=== PATIENT | female | born 2005 | race Hispanic/Latino ===

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

== ENCOUNTER 2024-03-19 12:36 | Emergency (ER) | payer OTHER, SELFPAY ==
[2024-03-19 12:59] LABS: Absolute Eosinophils 0.3 K/uL (0-0.5); Absolute Lymphocytes (CBC) 2.4 K/uL (0.7-4.9); Absolute Monocytes 0.5 K/uL (0.1-1.3); Absolute Neutrophil 6.6 K/uL (1.8-8.0); Basophils % 0.5 % (0-1.3); Eosinophils % 3.4 % (0-4.4); Hematocrit 34.8 % (36.0-45.0); Hemoglobin 11.5 g/dL (12.0-15.0); Lymphocytes % 24.6 % (15.3-44.8); MCH 28.3 pg (27.0-35.0); MCHC 33.1 g/dL (32.0-36.0); MCV 85.5 fL (80-100); MPV 7.6 fL (7.6-11.3); Monocytes % 5.1 % (3.3-12.3); Neutrophils % 66.4 % (41.7-73.7); Platelets 510 thou/uL (152-406); RBC Red Blood Cell Count 4.07 M/uL (3.86-4.86); Red Cell Distribution Width 13.6 % (12.1-15.2)
[2024-03-19] MEDS ORDERED: NA CHLORIDE 0.9% 100 ML ONE (13:00)
[2024-03-19] MEDS ORDERED: LEVETIRACETAM 500 MG/5 ML VIAL IV ONE (13:00)
[2024-03-19 13:16] LABS: Anion Gap 9.3 mEq/L (5.0-15.0); Potassium 3.3 mEq/L (3.5-5.1)
--- NOTE | 2024-03-19 15:28 | EDPHYS ---
Physician Documentation [facility] Name: Delmi Angel Age: 18 yrs Sex: Female : 2005 Arrival Date: 03/19/2024 Time: 12:36 Bed 13 Private MD: ED Physician Shan Lomeli HPI: 03/19 13:06 This 18 yrs old Female presents to ER via EMS with complaints of Seizure. rn 13:06 The patient presents after having a single isolated seizure. rn 13:09 Character of seizure(s): Loss of consciousness: it is not known if the patient rn experienced loss of consciousness, Motor activity: generalized, Apnea: the patient did not experience apnea, Circulation: the patient did not experience evidence of pulse disturbance. Seizure onset: just prior to arrival. Seizure Hx: Usual frequency: roughly every 2 month(s). EMS care: none. Current symptoms: Generalized muscle aches. The patient has experienced similar episodes in the past. Patient reports had seizure prior to arrival while at work. Has a history of seizure. Has not filled her Keppra in the last 2 months. Usually has seizure every 2 months. No fever or chills. No head injury. Feels the same as she always does after seizures.. Historical: - Allergies: 12:49 peanut; jl7 - PMHx: 12:49 Seizure; breast cancer; jl7 - PSHx: 12:49 cyst; strabismus; jl7 - Immunization history:: Adult Immunizations unknown. - Infectious Disease History:: Denies. - Social history:: Smoking status: Reported history of juuling and/or vaping. - Family history:: not pertinent. - Hospitalizations: : No recent hospitalization is reported. ROS: 13:10 Constitutional: Negative for fever, chills, and weight loss, Cardiovascular: Negative rn for chest pain, palpitations, and edema, Respiratory: Negative for shortness of breath, cough, wheezing, and pleuritic chest pain, Abdomen/GI: Negative for abdominal pain, nausea, vomiting, diarrhea, and constipation, MS/Extremity: Negative for injury and deformity, Skin: Negative for injury, rash, and discoloration, Neuro: Positive for seizure Exam: 13:10 Constitutional: This is a well developed, well nourished patient who is awake, alert, rn and in no acute distress. Head/Face: Normocephalic, atraumatic. Eyes: Pupils equal round and reactive to light, extra-ocular motions intact. Cardiovascular: Regular rate and rhythm. No pulse deficits. Respiratory: No increased work of breathing, no retractions or nasal flaring. Neuro: Awake and alert, GCS 15, oriented to person, place, time, and situation. Cranial nerves II-XII grossly intact. Motor strength 5/5 in all extremities. Sensory grossly intact. Cerebellar exam normal. 13:17 ECG was reviewed by the Attending Physician. rn Vital Signs: 12:47 BP 114 / 68; Pulse 76; Resp 17; Temp 98.2; Pulse Ox 98% ; Weight 93.89 kg; Height 5 ft. jl7 4 in. ; Pain 3/10; 14:11 BP 124 / 74; Pulse 68; Resp 16; Pulse Ox 100% on R/A; mb9 15:37 BP 120 / 68; Pulse 88; Resp 18; Pulse Ox 100% on NC; mb9 12:47 Body Mass Index 35.53 (93.89 kg, 162.56 cm) jl7 12:47 Pain Scale: Adult jl7 [place] Coma Score: 12:49 Eye Response: spontaneous(4). Motor Response: obeys commands(6). Verbal Response: jl7 oriented(5). Total: 15. MDM: 12:37 Medical Screening Exam initiated rn 15:27 Differential diagnosis: seizure. Data reviewed: vital signs, nurses notes, lab test rn result(s), and as a result, I will discharge patient. Counseling: I had a detailed discussion with the patient and/or guardian regarding the historical points, exam findings, and any diagnostic results supporting the discharge/admit diagnosis, lab results, the need for outpatient follow up, to return to the emergency department if symptoms worsen or persist or if there are any questions or concerns that arise at home. Special discussion: I discussed with the patient/guardian in detail that at this point there is no indication for admission to the hospital. It is understood, however, that if the symptoms persist or worsen the patient needs to return immediately for re-evaluation. Based on the history and exam findings, there is no indication for further emergent testing or inpatient evaluation. I discussed with the patient/guardian the need to see the neurologist for further evaluation of the symptoms. 03/19 12:38 Order name: CBC with Diff; Complete Time: 15: rn 03/19 12:38 Order name: Basic Metabolic Panel; Complete Time: 15: rn 03/19 12:38 Order name: IV Start; Complete Time: 12:45 rn EC:17 Rate is 80 beats/min. Rhythm is regular. QRS [place] is Normal. MS interval is normal. QRS rn interval is normal. QT interval is normal. No Q waves. T waves are Normal. No ST changes noted. Clinical impression: Normal ECG. Interpreted by me. Reviewed by me. Administered Medications: 13:03 Drug: Keppra IV 1000 mg IV at calculated rate once Route: IV; Rate: calculated rate; mb9 Site: left antecubital; 15:37 Follow up: Response: No adverse reaction; IV Status: Completed infusion mb9 Disposition Summary: 03/19/24 15:28 Discharge Ordered Notes: Location: Home rn Problem: an ongoing problem rn Symptoms: have improved rn Condition: Stable rn Diagnosis - Epileptic seizures related to external causes, not intractable, without status rn epilepticus Followup: rn - With: Private Physician - When: As needed - Reason: Recheck today's complaints, Re-evaluation by your physician Discharge Instructions: - Epilepsy rn - Seizure, Adult rn - Discharge Summary Sheet ll1 Forms: - Medication Reconciliation Form rn - 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 Has a history of rn seizure. Has not filled her Keppra in the last 2 months. Usually has seizure every 2 months. No fever or chills. No head injury.. rn
--- NOTE | 2024-03-19 15:28 | ER ---
Nurse's Notes [facility] Name: Delmi Angel Age: 18 yrs Sex: Female : 2005 Arrival Date: 03/19/2024 Time: 12:36 Bed 13 Private MD: Diagnosis: Epileptic seizures related to external causes, not intractable, without status epilepticus Presentation: 03/19 12:47 Chief complaint: EMS states: Toned out for seizure while at work, hx of seizures, has renata not been on her Keppra x 3 months due to no insurance. Coronavirus screen: At this time, the client does not indicate any symptoms associated with coronavirus-19. Ebola Screen: No symptoms or risks identified at this time. Initial Sepsis Screen: Does the patient meet any 2 criteria? No. Patient's initial sepsis screen is negative. Does the patient have a suspected source of infection? No. Patient's initial sepsis screen is negative. Risk Assessment: Do you want to hurt yourself or someone else? Patient reports no desire to harm self or others. Onset of symptoms was March 19, 2024. 12:47 Method Of Arrival: EMS: [facility] jl7 12:47 Acuity: GENE 2 jl7 Triage Assessment: 12:49 General: Appears in no apparent distress. uncomfortable, Behavior is calm, cooperative, jl7 appropriate for age. Pain: Complains of pain in right leg Pain currently is 3 out of 10 on a pain scale. Neuro: Flood Agitation-Sedation Scale (RASS): 0 - Alert and Calm Level of Consciousness is awake, alert, obeys commands, Oriented to person, place, time, situation. Cardiovascular: Patient's skin is warm and dry. Respiratory: Airway is patent Respiratory effort is even, unlabored, Respiratory pattern is regular, symmetrical. Derm: Skin is pink, warm \T\ dry. Historical: - Allergies: 12:49 peanut; jl7 - PMHx: 12:49 Seizure; breast cancer; jl7 - PSHx: 12:49 cyst; strabismus; jl7 - Immunization history:: Adult Immunizations unknown. - Infectious Disease History:: Denies. - Social history:: Smoking status: Reported history of juuling and/or vaping. - Family history:: not pertinent. - Hospitalizations: : No recent hospitalization is reported. Screenin:51 [facility] ED Fall Risk Assessment (Adult) History of falling in the last 3 months, jl7 including since admission No falls in past 3 months (0 pts) Confusion or Disorientation No (0 pts) Intoxicated or Sedated No (0 pts) Impaired Gait No (0 pts) Mobility Assist Device Used No (0 pt) Altered Elimination No (0 pt) Score/Fall Risk Level 0 - 2 = Low Risk Oriented to surroundings, Maintained a safe environment. Abuse screen: Denies threats or abuse. Denies injuries from another. Nutritional screening: No deficits noted. Tuberculosis screening: No symptoms or risk factors identified. Assessment: 13:12 Neuro: Flood Agitation-Sedation Scale (RASS): 0 - Alert and Calm Level of mb9 Consciousness is awake, alert, obeys commands, Oriented to person, place, time, situation, Appropriate for age. Cardiovascular: Patient's skin is warm and dry. Respiratory: Airway is patent Respiratory effort is even, unlabored, Respiratory pattern is regular, symmetrical. GI: No signs and/or symptoms were reported involving the gastrointestinal system. : No signs and/or symptoms were reported regarding the genitourinary system. EENT: No signs and/or symptoms were reported regarding the EENT system. Derm: Skin is pink, warm \T\ dry. Musculoskeletal: Range of motion: intact in all extremities. 15:01 Reassessment: No changes from previously documented assessment. Patient and/or family mb9 updated on plan of care and expected duration. Pain level reassessed. Patient is alert, oriented x 3, equal unlabored respirations, skin warm/dry/pink. Vital Signs: 12:47 BP 114 / 68; Pulse 76; Resp 17; Temp 98.2; Pulse Ox 98% ; Weight 93.89 kg; Height 5 ft. jl7 4 in. ; Pain 3/10; 14:11 BP 124 / 74; Pulse 68; Resp 16; Pulse Ox 100% on R/A; mb9 15:37 BP 120 / 68; Pulse 88; Resp 18; Pulse Ox 100% on NC; mb9 12:47 Body Mass Index 35.53 (93.89 kg, 162.56 cm) jl7 12:47 Pain Scale: Adult jl7 [place] Coma Score: 12:49 Eye Response: spontaneous(4). Motor Response: obeys commands(6). Verbal Response: jl7 oriented(5). Total: 15. ED Course: 12:37 Patient arrived in ED. rn 12:37 Shan Lomeli MD is Attending Physician. rn 12:45 Basic Metabolic Panel Sent. bc6 12:45 CBC with Diff Sent. bc6 12:45 Initial lab(s) drawn, by me, sent to lab. Inserted saline lock: 20 gauge in left bc6 antecubital area, using aseptic technique. Blood collected. Flushed with 10 mL NS. 12:49 Triage completed. jl7 12:49 Arm band placed on right wrist. jl7 12:51 Patient has correct armband on for positive identification. Bed in low position. Call jl7 light in reach. Side rails up X2. Seizure precautions initiated. Provided Education on: use of call kam. Client placed on continuous cardiac and pulse oximetry monitoring. NIBP monitoring applied. 12:58 Meron Lund, RN is Primary Nurse. mb9 13:11 No provider procedures requiring assistance completed. mb9 15:37 IV discontinued, intact, bleeding controlled, No redness/swelling at site. Pressure mb9 dressing applied. Administered Medications: 13:03 Drug: Keppra IV 1000 mg IV at calculated rate once Route: IV; Rate: calculated rate; mb9 Site: left antecubital; 15:37 Follow up: Response: No adverse reaction; IV Status: Completed infusion mb9 Medication: 12:52 VIS not applicable for this client. jl7 Outcome: 15:28 Discharge ordered by MD. rn 15:37 Discharged to home ambulatory, with family, mb9 15:37 Condition: stable 15:37 Discharge instructions given to patient, family, Instructed on discharge instructions, follow up and referral plans. Demonstrated understanding of instructions, follow-up care, medications, Prescriptions given X 1, 15:37 Patient left the ED. mb9 Signatures: Shan Lomeli MD MD rn Leal, Jahala, RN RN jl7 Wilkerson, Mary Beth, MARTA RN [email or web address] Ladonna Mustafa [facility] Corrections: (The following items were deleted from the chart) 12:50 12:49 Allergies: No Known Allergies; jl7 jl7
[2024-03-19 17:54] VITALS: TEMP 98.2
[2024-03-19 17:56] VITALS: O2SAT 100
[2024-03-19 17:57] VITALS: BP 120/68
--- NOTE | 2024-03-21 12:23 | EKG ---
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
== END 2024-03-19 15:37 | disposition home or self-care (01) ==
LOC: ER 12:36
DX: G40.509 Epileptic seizures related to external causes, not intractable, without status epilepticus (principal)
CPT/HCPCS: 96365; 93005; 85025; 80048; 36415; 99284; 96366; J1953